=== PATIENT | female | born 1960 | race Caucasian/White ===

== ENCOUNTER 2018-12-29 10:13 | Emergency (ER) | payer BC ==
[2018-12-29 10:39] VITALS: BP 113/55; PULSE 69
--- NOTE | 2018-12-29 10:59 | EDM.PDOC ---
ED HPI GENERAL MEDICAL PROBLEM - General Chief Complaint: General Stated Complaint: KIDNEY STONE Time Seen by Provider: 12/29/18 10:30 Source of Information: Reports: Patient History Limitations: Reports: No Limitations - History of Present Illness INITIAL COMMENTS - FREE TEXT/NARRATIVE: Pt 58 year old female with right sided midback pain with radiation to right groin since yesterday. She claims she has been having hematuria and increased frequency of urination. Apparently she was having frequent all night, but for the past 2 times she urine has cleared up. No fever or chills. No nausea or vomiting. No headache. Pt was seen yesterday int he clinic. Her UA was negative, and as her pain was in the right pelvic region, it looked like a lower ureteric stone, was discahrge on Toradol and Vicodin. Advised to drink plenty of fluids and followup if not better. Today patient rates her pain at 10/10. most of the pain is in the right pelvic region. Claims she has no vaginal bleeding, discharge or discomfort. Onset Date: 12/28/18 Duration: Intermittent, Waxing/Waning Location: Reports: Back, Pelvis Quality: Reports: Ache Severity: Moderate Improves with: Reports: None Worsens with: Reports: None Associated Symptoms: Denies: Confusion, Chest Pain, Cough, Diaphoresis, Fever/ Chills, Headaches, Nausea/Vomiting, Rash, Seizure, Shortness of Breath, Syncope , Weakness Lower Back Pain Score (Numeric/FACES): 10 - Related Data Allergies Allergy/AdvReac Type Severity Reaction Status Date / Time gluten Allergy Stomach Verified 12/29/18 10:27 Upset yeast wheat corn celery beer Allergy Stomach Uncoded 12/29/18 10:27 milk c Upset Home Meds: Home Meds Aspirin [Juan Jose Chewable] 81 mg PO DAILY 11/06/15 [History] Diltiazem HCl [Dilt-XR] 120 mg PO DAILY 11/06/15 [History] Metoprolol Succinate [Toprol XL] 50 mg PO DAILY 11/06/15 [History] Omeprazole 40 mg PO ACBREAKFAST 11/06/15 [History] Simvastatin 40 mg PO QPM 11/06/15 [History] Thiamine Mononitrate [Vitamin B-1] 100 mg PO DAILY 11/06/15 [History] Fish Oil/[place]-3 Fatty Acids [Fish Oil] 1 each PO DAILY 01/25/16 [History] Venlafaxine HCl [Venlafaxine ER] 3 cap PO DAILY 01/25/16 [History] amLODIPine [Norvasc] 2.5 mg PO DAILY 12/29/18 [History] Past Medical History Cardiovascular History: Reports: Arrhythmia, High Cholesterol, Hypertension Gastrointestinal History: Reports: GERD Genitourinary History: Reports: Renal Calculus, UTI, 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: Musculoskeletal History: Reports: Fracture, Gout, Other (See Below) Other Musculoskeletal History: Collar bone, ribs Neurological History: Reports: Concussion - Infectious Disease History Infectious Disease History: Reports: Chicken Pox, Measles - Past Surgical History GI Surgical History: Reports: Appendectomy, Cholecystectomy, Colonoscopy Female Surgical History: Reports: Salpingo-Oophorectomy Neurological Surgical History: Reports: None Social & Family History - Family History Family Medical History: Noncontributory Cardiac: Reports: Heart Failure Oncologic: Reports: Colon - Tobacco Use Smoking Status *Q: Never Smoker Second Hand Smoke Exposure: No - Caffeine Use Caffeine Use: Reports: Soda - Recreational Drug Use Recreational Drug Use: No ED ROS GENERAL - Review of Systems Review Of Systems: See Below Constitutional: Denies: Fever, Chills HEENT: Denies: Rhinitis, Throat Pain Respiratory: Denies: Shortness of Breath, Cough, Sputum Cardiovascular: Denies: Chest Pain, Lightheadedness GI/Abdominal: Reports: Abdominal Pain, Flatus. Denies: Constipation, Diarrhea, Nausea, Vomiting : Reports: Dysuria, Frequency, Hematuria Musculoskeletal: Denies: Joint Pain, Joint Swelling Skin: Denies: Bruising, Pruritis, Rash Neurological: Denies: Confusion, Dizziness, Headache, Numbness, Tingling ED EXAM, GENERAL - Physical Exam Exam: See Below Exam Limited By: No Limitations General Appearance: Alert, WD/WN, No Apparent Distress, Other (Pateint rates her pain at 10/10 but does not appear to be in any discomfort.) Eye Exam: Bilateral Eye: EOMI, PERRL Ears: Normal External Exam, Normal Canal, Hearing Grossly Normal, Normal TMs Ear Exam: Bilateral Ear: Auricle Normal, Canal Normal, TM normal Nose: Normal Inspection, Normal Mucosa, No Blood Throat/Mouth: Normal Inspection, Normal Lips, Normal Teeth, Normal Gums, Normal Oropharynx, Normal Voice, No Airway Compromise Head: Atraumatic, Normocephalic Neck: Normal Inspection, Supple, Non-Tender, Full Range of Motion Respiratory/Chest: No Respiratory Distress, Lungs Clear, Normal Breath Sounds, No Accessory Muscle Use, Chest Non-Tender Cardiovascular: Normal Peripheral Pulses, Regular Rate, Rhythm, No Edema, No Gallop, No JVD, No Murmur, No Rub GI/Abdominal: Normal Bowel Sounds, Soft, Non-Tender, No Organomegaly, No Distention, No Abnormal Bruit, No Mass (Female) Exam: Deferred (by aptient claims she has no vaginal symptoms) Extremities: Normal Inspection, Normal Range of Motion, Non-Tender, Normal Capillary Refill, No Pedal Edema Neurological: Alert, Oriented Course - Vital Signs Text/Narrative:: Pt was seen yesterday with similar c/o . Her UA was negative for occult blood or microscopic blood. Her symptoms appeared like ureteric colic with stone almost at the UV junction with her pain symptoms. She was started on alternating toradol with vicodin every 4 hrs. She is here in the emergency room as her pain has not got better. Vitals are very stable. Her Ct abdomen and pelvis done for stone protocol is negative. Also her UA done today appears concentrated, also shows positive leucs and WBC of 20, with microscopic blood. Pt reassured that if she had a ureteric stone she has passed it. But secondary to stone, might have developed UTI. I have started her on Bactrim DS 1 po BID for 1 wk. Advised to drink plenty of fluids and keep her urine clear. Will order urine culture and followup with results. Last Recorded V/S: Last Vital Signs Temp 97.0 F 12/29/18 10:33 Pulse 69 12/29/18 10:33 Resp 18 12/29/18 10:33 BP 113/55 L 12/29/18 10:33 Pulse Ox 96 12/29/18 10:33 - Orders/Labs/Meds Orders: Active Orders 24 hr Category Date Time Status Abdomen Pelvis wo Cont [CT] Stat Exams 12/29/18 10:28 Taken CULTURE URINE [RM] Stat Lab 12/29/18 10:30 Received Labs: Laboratory Tests 12/29/18 Range/Units 10:51 Urine Color Yellow Urine Appearance Clear (CLEAR) Urine pH 5.5 (5.0-8.0) Ur Specific [place] >= 1.030 (1.003-1.030) Urine Protein 100 H (NEGATIVE) mg/dL Urine Glucose (UA) Negative (NEGATIVE) mg/dL Urine Ketones 15 H (NEGATIVE) mg/dL Urine Occult Blood Moderate H (NEGATIVE) Urine Nitrite Negative (NEGATIVE) Urine Bilirubin Small H (NEGATIVE) Urine Urobilinogen 0.2 (0.2-1.0) E.U./dL Ur Leukocyte Esterase Negative (NEGATIVE) Urine RBC 40-50 H /HPF Urine WBC 10-20 H /HPF Urine WBC Clumps Few /HPF Ur Squamous Epith Cells Many /HPF Amorphous Sediment Moderate /HPF Urine Bacteria Few /HPF Departure - Departure Time of Disposition: 11:40 Disposition: Home, Self-Care 01 Condition: Good Clinical Impression: UTI (urinary tract infection) - Discharge Information *PRESCRIPTION DRUG MONITORING PROGRAM REVIEWED*: Not Applicable *COPY OF PRESCRIPTION DRUG MONITORING REPORT IN PATIENT ALTAGRACIA: Not Applicable Instructions: Urinary Tract Infection, Adult Referrals: PCP,None [Primary Care Provider] - Forms: ED Department Discharge Additional Instructions: Pt was seen yesterday with similar c/o . Her UA was negative for occult blood or microscopic blood. Her symptoms appeared like ureteric colic with stone almost at the UV junction with her pain symptoms. She was started on alternating toradol with vicodin every 4 hrs. She is here in the emergency room as her pain has not got better. Vitals are very stable. Her Ct abdomen and pelvis done for stone protocol is negative. Also her UA done today appears concentrated, also shows positive leucs and WBC of 20, with microscopic blood. Pt reassured that if she had a ureteric stone she has passed it. But secondary to stone, might have developed UTI. I have started her on Bactrim DS 1 po BID for 1 wk. Advised to drink plenty of fluids and keep her urine clear. Will order urine culture and followup with results. - Problem List & Annotations (1) UTI (urinary tract infection) SNOMED Code(s): 51518899 Code(s): N39.0 - URINARY TRACT INFECTION, SITE NOT SPECIFIED Status: Acute Current Visit: Yes - Problem List Review Problem List Initiated/Reviewed/Updated: Yes - My Orders Last 24 Hours: My Active Orders 12/29/18 10:28 Abdomen Pelvis wo Cont [CT] Stat 12/29/18 10:30 CULTURE URINE [RM] Stat - Assessment/Plan Last 24 Hours: My Active Orders 12/29/18 10:28 Abdomen Pelvis wo Cont [CT] Stat 12/29/18 10:30 CULTURE URINE [RM] Stat Assessment:: UTI Plan: Pt was seen yesterday with similar c/o . Her UA was negative for occult blood or microscopic blood. Her symptoms appeared like ureteric colic with stone almost at the UV junction with her pain symptoms. She was started on alternating toradol with vicodin every 4 hrs. She is here in the emergency room as her pain has not got better. Vitals are very stable. Her Ct abdomen and pelvis done for stone protocol is negative. Also her UA done today appears concentrated, also shows positive leucs and WBC of 20, with microscopic blood. Pt reassured that if she had a ureteric stone she has passed it. But secondary to stone, might have developed UTI. I have started her on Bactrim DS 1 po BID for 1 wk. Advised to drink plenty of fluids and keep her urine clear. Will order urine culture and followup with results.
[2018-12-29] MEDS ORDERED: Sulfamethoxazole/Trimethoprim 800-160 MG Tab ONE (11:00)
--- NOTE | 2018-12-30 15:43 | CRLCT ---
DATE OF SERVICE: 12/29/18 CLINICAL DATA: back pain UNENHANCED ABDOMEN AND PELVIC CT: Multislice acquisition through the abdomen and pelvis without IV or oral contrast was performed. Comparison is made to a prior exam dated 03/14/17. The lung bases are clear. The liver is normal size with homogeneous attenuation. No focal hepatic lesions. The patient is status post cholecystectomy. The spleen appears normal. The pancreas appears normal. The right and left adrenals appear normal. The right and left kidneys appear normal. No nephrocalcinosis or nephrolithiasis. No hydronephrosis or hydroureter. There is a small amount of fluid within the bladder. It appears normal. The appendix is not dilated. No evidence of appendicitis. There is a moderate amount of stool noted within the cecum, ascending colon and transverse colon. No free air. No free fluid. No dilated loops of bowel. No adenopathy. No aortic aneurysm. There is a small umbilical hernia containing fat. IMPRESSION: No acute abnormalities. Other findings as discussed above. [id number] MTDD
== END 2018-12-29 11:35 | disposition home or self-care (01) ==
LOC: LB.ED 10:13
DX: N39.0 Urinary tract infection, site not specified (principal); I10 Essential (primary) hypertension; K21.9 Gastro-esophageal reflux disease without esophagitis; E78.00 Pure hypercholesterolemia, unspecified; M10.9 Gout, unspecified; Z90.49 Acquired absence of other specified parts of digestive tract; Z91.018 Allergy to other foods; Z91.011 Allergy to milk products; Z79.82 Long term (current) use of aspirin; Z79.899 Other long term (current) drug therapy
CPT/HCPCS: 74176; 81001; 87086; 87088; 87186; 99284; A9270

== ENCOUNTER 2019-07-11 11:08 | Emergency (ER) | payer BC ==
--- NOTE | 2019-07-11 11:28 | EDM.PDOC ---
ED HPI GENERAL MEDICAL PROBLEM - General Chief Complaint: Chest Pain Stated Complaint: LEFT SIDED CHEST PAIN Time Seen by Provider: 07/11/19 11:20 Source of Information: Reports: Patient History Limitations: Reports: No Limitations - History of Present Illness INITIAL COMMENTS - FREE TEXT/NARRATIVE: This patient presents to the ED for evaluation of chest pain. She states she has had left sided chest pain "since we started having to wear masks at work" which is about 2 weeks in duration. She decided to come in today [place] to come to work. She states she is also having difficulty breathing when wearing a mask and that the pain "almost goes away" when she is at home but doesn't completely stop. The patient denies any nausea, vomiting, cough, sore throat, or fever. She is teary and appears quite anxious. She states she has heart disease but doesn't know what it is or what medications she takes. She is an employee in the [employer] facility. Onset Date: 06/27/19 Duration: Constant, Waxing/Waning (nearly resolvs when not wearing a mask) Quality: Reports: Ache Severity: Mild Improves with: Reports: None Associated Symptoms: Reports: Chest Pain. Denies: Cough, Fever/Chills, Nausea/ Vomiting, Shortness of Breath - Related Data Allergies Allergy/AdvReac Type Severity Reaction Status Date / Time gluten Allergy Stomach Verified 12/29/18 10:27 Upset yeast wheat corn celery beer Allergy Stomach Uncoded 12/29/18 10:27 milk c Upset Home Meds: Home Meds Aspirin [Juan Jose Chewable] 81 mg PO DAILY 11/06/15 [History] Diltiazem HCl [Dilt-XR] 120 mg PO DAILY 11/06/15 [History] Metoprolol Succinate [Toprol XL] 50 mg PO DAILY 11/06/15 [History] Omeprazole 40 mg PO ACBREAKFAST 11/06/15 [History] Simvastatin 40 mg PO QPM 11/06/15 [History] Thiamine Mononitrate (Vit B1) [Vitamin B-1] 100 mg PO DAILY 11/06/15 [History] Fish Oil/[place]-3 Fatty Acids [Fish Oil] 1 each PO DAILY 01/25/16 [History] Venlafaxine HCl [Venlafaxine ER] 3 cap PO DAILY 01/25/16 [History] amLODIPine [Norvasc] 2.5 mg PO DAILY 12/29/18 [History] Past Medical History Cardiovascular History: Reports: Arrhythmia, High Cholesterol, Hypertension Gastrointestinal History: Reports: GERD Genitourinary History: Reports: Renal Calculus, UTI, 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: Musculoskeletal History: Reports: Fracture, Gout, Other (See Below) Other Musculoskeletal History: Collar bone, ribs Neurological History: Reports: Concussion - Infectious Disease History Infectious Disease History: Reports: Chicken Pox, Measles - Past Surgical History GI Surgical History: Reports: Appendectomy, Cholecystectomy, Colonoscopy Female Surgical History: Reports: Salpingo-Oophorectomy Neurological Surgical History: Reports: None Social & Family History - Family History Family Medical History: Noncontributory Cardiac: Reports: Heart Failure Oncologic: Reports: Colon - Caffeine Use Caffeine Use: Reports: Soda ED ROS GENERAL - Review of Systems Review Of Systems: Comprehensive ROS is negative, except as noted in HPI. ED EXAM, GENERAL - Physical Exam Exam: See Below Exam Limited By: No Limitations General Appearance: Alert, WD/WN, Anxious, Mild Distress, Obese Eye Exam: Bilateral Eye: PERRL Ears: Normal External Exam Nose: Normal Inspection Throat/Mouth: Normal Inspection Head: Atraumatic, Normocephalic Neck: Normal Inspection Respiratory/Chest: No Respiratory Distress, Lungs Clear, Normal Breath Sounds, No Accessory Muscle Use, Chest Non-Tender Cardiovascular: Normal Peripheral Pulses, Regular Rate, Rhythm Neurological: Alert, Oriented Psychiatric: Normal Affect, Normal Mood Skin Exam: Warm, Dry Course - Orders/Labs/Meds Orders: Active Orders 24 hr Category Date Time Status EKG Documentation Completion [RC] ASDIRECTED Care 07/11/19 11:22 Ordered Labs: Laboratory Tests 07/11/19 Range/Units 11:35 Troponin I < 0.017 (0.000-0.060) ng/mL - Re-Assessments/Exams Free Text/Narrative Re-Assessment/Exam: 07/11/19 12:23 This patient presents for evaluation with symptoms of chest pain that seem most consistent with an anxiety reaction. Patient feels the same after her ED visit ; however, was required to keep her mask on while in the ED. There is no sign at this point of a general medical problem or cardiac concern including PE, hyperthyroidism, cardiac ischemia, asthma exacerbation, aortic dissection, other metabolic derangement, infection. There are no signs of serious psychiatric decompensation warranting psychiatric hospitalization or 72 hold. No toxidrome to suggest a particular drug ingestion has been noted. Supportive outpatient management is therefore indicated. Departure - Departure Time of Disposition: 12:30 Disposition: Home, Self-Care 01 Condition: Good Clinical Impression: Anxiety, Chest pain - Discharge Information *PRESCRIPTION DRUG MONITORING PROGRAM REVIEWED*: No Instructions: Living With Anxiety, Nonspecific Chest Pain, Adult, [id number] Referrals: PCP,None [Primary Care Provider] - Forms: ED Department Discharge Additional Instructions: Follow up with your primary care provider as needed. 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 - My Orders Last 24 Hours: My Active Orders 07/11/19 11:22 EKG Documentation Completion [RC] ASDIRECTED - Assessment/Plan Last 24 Hours: My Active Orders 07/11/19 11:22 EKG Documentation Completion [RC] ASDIRECTED
[2019-07-13 20:50] VITALS: BP 117/61; PULSE 75
== END 2019-07-11 12:30 | disposition home or self-care (01) ==
LOC: LB.ED 11:08
DX: F41.9 Anxiety disorder, unspecified (principal); E78.00 Pure hypercholesterolemia, unspecified; I10 Essential (primary) hypertension; K21.9 Gastro-esophageal reflux disease without esophagitis; M10.9 Gout, unspecified; Z79.82 Long term (current) use of aspirin; Z79.899 Other long term (current) drug therapy; Z91.09 Other allergy status, other than to drugs and biological substances; Z91.018 Allergy to other foods
CPT/HCPCS: 36415; 84484; 93005; 99282; 99285-25